=== PATIENT | female | born 2000 | race Caucasian/White ===

== ENCOUNTER 2019-09-23 16:33 | Emergency (ER) | payer OTHER ==
[~2019-09-23] VITALS: Ht 160 cm; Wt 116.1 kg
[2019-09-23 16:46] VITALS: BP 134/66
--- NOTE | 2019-09-23 18:00 | NUR ---
anca nguyen at bedside examining pt
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
--- NOTE | 2019-09-23 18:15 | NUR ---
skin within normal limits after application of splint to lt wrist
[2019-09-23 18:17] VITALS: BP 148/81
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
== END 2019-09-23 18:17 | disposition home or self-care (01) ==
LOC: MED 16:33
DX: S63.502A Unspecified sprain of left wrist, initial encounter (principal); X58.XXXA Exposure to other specified factors, initial encounter; Y93.89 Activity, other specified; Y92.89 Other specified places as the place of occurrence of the external cause; Y99.8 Other external cause status
CPT/HCPCS: 73110; 99283